=== PATIENT | male | born 1960 | race Hispanic/Latino ===

== ENCOUNTER 2022-03-26 12:34 | Emergency (ER) | payer OTHER, SELFPAY ==
[2022-03-26] VITALS (7 sets, daily range): BP systolic 167–215; BP diastolic 85–102; PULSE 65–75; RESP 14–18; TEMP 36.3–36.8; O2SAT 95–99; BMI 26.6
--- NOTE | 2022-03-26 12:52 | XR_ITS ---
Examination: Chest, AP, portable, single view. Technique: Chest, AP upright, portable, single view Date and time: March 26, 2022 1257 hours INDICATIONS: SOB back pain today FINDINGS: Normal heart size Lungs are clear Moderate osteopenia IMPRESSION: No active disease
--- NOTE | 2022-03-26 12:53 | PD.EDADULT ---
ED General RME/HPI General Chief complaint: Back Pain/Injury Stated complaint: BACK PAIN Time Seen by Provider: 03/26/22 12:48 Arrival date/time: 03/26/22 12:34 RME / HPI RME / HPI narrative: 61-year-old male patient was sent to us from [facility], with significant history of hypertension diabetes mellitus, came in for evaluation regarding right-sided posterior chest pain. Onset of symptoms for the last few hours sudden onset of right-sided posterior chest pain, described as dull ache, severity 5 out of 10 nonradiating. It happened after an argument with somebody else. Patient denies any cough denies any fever denies any direct trauma or fall. No medication was taken prior to arrival. In the triage patient was noted to have a systolic above 210. Patient took his blood pressure medication today. Related Data Home Medications Medication Instructions Recorded Confirmed amlodipine 10 mg tablet (Norvasc) 10 mg PO QDAY #0 tabs 10/22/14 03/26/22 acetaminophen 325 mg tablet 650 mg PO Q6H PRN Pain 03/26/22 03/26/22 (Tylenol) aspirin 325 mg tablet 325 mg PO QDAY 03/26/22 03/26/22 atorvastatin 40 mg tablet 40 mg PO QPM 03/26/22 03/26/22 bisacodyl 10 mg rectal suppository 10 mg OR PRN PRN Constipation 03/26/22 03/26/22 (Dulcolax (bisacodyl)) clopidogrel 75 mg tablet (Plavix) 75 mg PO QDAY 03/26/22 03/26/22 cyclobenzaprine 5 mg tablet 5 mg PO Q8H PRN Spasms 03/26/22 03/26/22 folic acid 1 mg tablet 1 mg PO QDAY 03/26/22 03/26/22 gabapentin 300 mg capsule 300 mg PO TID 03/26/22 03/26/22 insulin detemir U-100 100 unit/mL 34 unit subcut BID 03/26/22 03/26/22 (3 mL) subcutaneous pen (Levemir FlexPen) insulin lispro 100 unit/mL See Rx Instructions .Route .COMPLEX 03/26/22 03/26/22 subcutaneous pen (Humalog KwikPen (U-100) Insulin) magnesium hydroxide 400 mg/5 mL 30 ml PO PRN PRN Constipation 03/26/22 03/26/22 oral suspension (Milk of Magnesia) multivitamin with minerals 1 tab PO QDAY 03/26/22 03/26/22 sertraline 50 mg tablet 50 mg PO QDAY 03/26/22 03/26/22 sitagliptin phosphate 100 mg 100 mg PO QDAY 03/26/22 03/26/22 tablet (Januvia) sodium phosphates 19 gram-7 118 ml OR PRN PRN Constipation 03/26/22 03/26/22 gram/118 mL enema (Fleet Enema) Allergies Allergy/AdvReac Type Severity Reaction Status Date / Time No Known Allergies Allergy Verified 03/26/22 12:45 Review of Systems Review of Systems Narrative Review of Systems: CONSTITUTIONAL: No chills, no fever, no weakness, no diaphoresis, no malaise. HEAD/FACE: No signs of trauma. EENT: No eye pain, no blurred vision, no tearing, no double vision, no ear pain, no ear discharged, no nose pain, no nasal congestion, no throat pain, no throat swelling, no mouth pain. RESPIRATORY: No cough, no orthopnea, no SOB, no stridor, no wheezing. CARDIOVASCULAR: Right posterior chest pain, no edema, no palpitations, no syncope. GASTROINTESTINAL/ABDOMINAL: No abdominal pain, no constipation, no diarrhea, no nausea, no vomiting. GENITOURINARY: No abnormal discharge, no dysuria, no frequent urination, no hematuria. MUSCULOSKELETAL: No back pain, no gout, no joint pain, no joint swelling, no lumps, no rash. INTEGUMENTARY: No change in color, no change in hair/nails, no dryness, no lesions, no lumps, no rash. NEUROLOGICAL/PSYCH: No anxiety, not depressed, no emotional problem, no headache, no numbness, no paresthesia, no pre-existing deficit, no history of seizures, no tingling sensation, no tremors, no weakness. HEMATOLOGIC/LYMPHATIC: Not anemic, no history of blood clots, no apparent bleeding, no bruising, glands not swollen. All Systems Negative, Except as Noted. ED Exam Narrative Physical exam: VITAL SIGNS: Reviewed. GENERAL APPEARANCE: Alert and interactive, follows commands, no acute distress, well developed, nourished, appears well. HEAD AND FACE: Non-traumatic. ENT: PERRL, pink conjunctivitis, eyelid no trauma, anterior chamber clear. Pinnas intact and no signs of trauma or erythema. Tonsils, no exudates, no abscesses noted. Mucous membrane moist. NECK: Supple, nontender, no thyromegaly, no masses, no nuchal rigidity. CHEST: Right posterior chest wall tenderness, no crepitus, no paradoxical movement, no retractions. LUNGS: Clear, well ventilated, symmetric, no rales, no wheezing, no ronchi, no stridor, good breath sounds bilaterally. HEART: Regular rate, regular rhythm, no murmur, no gallops. VASCULAR: No peripheral edema. ABDOMEN: Soft, positive bowel sounds, nondistended, no guarding, nontender, no rebound, no masses, no hepatomegaly, no splenomegaly, no hernias. RECTAL: Deferred. GENITAL: Deferred. NEUROLOGICAL: Gross motor function intact sensory function intact, Appropriate for age. MUSCULOSKELETAL: Neck nontender, full range of motion. EXTREMITIES: Nontender, full range of motion. SKIN: Color pink, dry, good skin turgor, no rash, no lacerations, no abrasions, no contusions. LYMPHATICS: Deferred. Course Quality Measures none Orders Category Date Time Status XR chest 1V Stat Exams 03/26/22 12:52 Completed B-Type Natriuretic Peptide Stat Lab 03/26/22 13:00 Completed CBC Stat Lab 03/26/22 13:00 Completed Comprehensive Metabolic Panel Stat Lab 03/26/22 13:00 Completed Partial Thromboplastin Time Stat Lab 03/26/22 13:00 Completed Prothrombin Time with INR Stat Lab 03/26/22 13:00 Completed Troponin I Stat Lab 03/26/22 13:00 Completed Troponin I Stat Lab 03/26/22 15:17 Completed Aspirin Med 03/26/22 12:52 Discontinued 325 mg PO X1 ONE hydrALAZINE HCL [Apresoline] Med 03/26/22 12:52 Discontinued 25 mg PO X1 ONE Vital Signs Vital signs: Vital Signs Temperature 97.6 F 03/26/22 12:49 Pulse Rate 71 03/26/22 12:49 Respiratory Rate 16 03/26/22 12:49 Blood Pressure 215/102 H 03/26/22 12:49 Pulse Oximetry (%) 97 03/26/22 12:49 Oxygen Delivery Method Room Air 03/26/22 12:49 Medical Decision Making MDM Narrative MDM Narrative: Patient came in for evaluation regarding posterior chest pain. I have reviewed patient's history and physical examination from previous hospitalization. Current medical complaints extracted from the patient and EMS Although pt?s initial presentation was concerning, Pt now reports feeling better after NSAIDs and has an unremarkable workup here in the ED with EKG, Tropnin and Chest Xray ruling out the majority of my more concerning differential diagnoses including AMI, AAA, Pneumothorax and Pneumonia. CBC,BMP, Troponin are all unremarkable EKG : NSR, normal Ventricular rate, normal OR interval and NO ST segment depression or elevation noted. Xray of the Chest : indication: cough,chest pain , evaluate for pneumonia . Per my interpretation pending official radiology report: No Hemothorax or Pneumothorax, No Cardiomegaly, No inflitrates, no masses noted,Normal films I discussed the the following plan with the patient of NSAIDs PRN, close follow up with PMD 1-2 days, but to return in the event of worsening or persistent concerning symptoms for more comprehensive work up, diagnostics and further treatment.. . Lab Data Result diagrams: 03/26/22 13:00 03/26/22 13:00 Labs: Lab Results 03/26/22 03/26/22 03/26/22 Range/Units 13:00 13:00 13:00 WBC 8.3 (3.8-10.6) Thou/mm3 RBC 4.84 (4.50-5.90) Miln/mm3 Hgb 13.9 (13.5-16.0) g/dL Hct 39.6 L (41.0-53.0) % MCV 82 (80-100) fL MCH 28.7 (25.0-35.0) pg MCHC 35.1 (31.0-37.0) g/dl RDW Std Deviation 40.7 (35.1-43.9) fL Plt Count 197 (140-440) Thou/mm3 Neut % (Auto) 68 (37-80) % Lymph % (Auto) 21 (10-50) % Cascade % (Auto) 8 (0-12) % Eos % (Auto) 2 (0-10) % Baso % (Auto) 1 (0-2.5) % Neut # (Auto) 5.6 (1.8-7.7) Thou/mm3 Lymph # (Auto) 1.7 (1.0-4.8) Thou/mm3 Cascade # (Auto) 0.6 (0.0-0.8) Thou/mm3 Eos # (Auto) 0.2 (0.0-0.5) Thou/mm3 Baso # (Auto) 0.1 (0.0-0.2) Thou/mm3 Immature Gran # (Auto) 0.03 H (0.00-0.00) Thou/mm3 Absolute Nucleated RBC 0.00 (0.00-0.00) Thou/mm3 Immature Gran % 0 (0-0) % Nucleated RBC % 0 (0) /100 WBC PT 10.7 (9.0-12.2) Seconds INR 1.0 (0.9-1.3) APTT 27.6 (22.0-36.0) Seconds Sodium 138 (136-145) mMol/L Potassium 4.1 (3.4-5.1) mMol/L Chloride 101 (98-107) mMol/L Carbon Dioxide 30.0 (20.0-31.0) mMol/L Anion Gap 7 (7-16) BUN 15 (9-23) mg/dL Creatinine 1.7 H (0.6-1.3) mg/dL Estim Creat Clear Calc 46.2 L (>60) mL/min eGFR 46 L (60 - ) See Note BUN/Creatinine Ratio 9 L (12-20) Ratio Glucose 304 H (74-106) mg/dL Calculated Osmolality 287 (275-295) Calcium 9.2 (8.3-10.6) mg/dL Corrected Calcium 9.2 (8.5-10.1) mg/dL Total Bilirubin 0.4 (0.3-1.2) mg/dL AST 24 (0-34) U/L ALT 30 (10-49) U/L Alkaline Phosphatase 226 H (46-116) U/L Troponin I 0.062 H* (0.0-0.045) ng/mL B-Natriuretic Peptide (0-100) pg/mL Total Protein 7.4 (5.7-8.2) gm/dL Albumin 4.0 (3.4-4.8) gm/dL Globulin 3.4 (2.3-3.5) gm/dL Albumin/Globulin Ratio 1.2 (1.2-2.2) 03/26/22 03/26/22 Range/Units 13:00 15:17 WBC (3.8-10.6) Thou/mm3 RBC (4.50-5.90) Miln/mm3 Hgb (13.5-16.0) g/dL Hct (41.0-53.0) % MCV (80-100) fL MCH (25.0-35.0) pg MCHC (31.0-37.0) g/dl RDW Std Deviation (35.1-43.9) fL Plt Count (140-440) Thou/mm3 Neut % (Auto) (37-80) % Lymph % (Auto) (10-50) % Cascade % (Auto) (0-12) % Eos % (Auto) (0-10) % Baso % (Auto) (0-2.5) % Neut # (Auto) (1.8-7.7) Thou/mm3 Lymph # (Auto) (1.0-4.8) Thou/mm3 Cascade # (Auto) (0.0-0.8) Thou/mm3 Eos # (Auto) (0.0-0.5) Thou/mm3 Baso # (Auto) (0.0-0.2) Thou/mm3 Immature Gran # (Auto) (0.00-0.00) Thou/mm3 Absolute Nucleated RBC (0.00-0.00) Thou/mm3 Immature Gran % (0-0) % Nucleated RBC % (0) /100 WBC PT (9.0-12.2) Seconds INR (0.9-1.3) APTT (22.0-36.0) Seconds Sodium (136-145) mMol/L Potassium (3.4-5.1) mMol/L Chloride (98-107) mMol/L Carbon Dioxide (20.0-31.0) mMol/L Anion Gap (7-16) BUN (9-23) mg/dL Creatinine (0.6-1.3) mg/dL Estim Creat Clear Calc (>60) mL/min eGFR (60 - ) See Note BUN/Creatinine Ratio (12-20) Ratio Glucose (74-106) mg/dL Calculated Osmolality (275-295) Calcium (8.3-10.6) mg/dL Corrected Calcium (8.5-10.1) mg/dL Total Bilirubin (0.3-1.2) mg/dL AST (0-34) U/L ALT (10-49) U/L Alkaline Phosphatase (46-116) U/L Troponin I 0.058 H* (0.0-0.045) ng/mL B-Natriuretic Peptide 94 (0-100) pg/mL Total Protein (5.7-8.2) gm/dL Albumin (3.4-4.8) gm/dL Globulin (2.3-3.5) gm/dL Albumin/Globulin Ratio (1.2-2.2) Discharge Plan Plan Patient Disposition: HOME (Self Care) Disposition Comment: Stable Prescriptions/Referrals Prescriptions/Med Rec: No Action amlodipine [Norvasc] 10 MG tablet 10 mg PO QDAY Qty: 0 atorvastatin 40 mg Tablet 40 mg PO QPM acetaminophen [Tylenol] 325 mg Tablet 650 mg PO Q6H PRN (Reason: Pain) aspirin 325 mg Tablet 325 mg PO QDAY clopidogrel [Plavix] 75 mg Tablet 75 mg PO QDAY magnesium hydroxide [Milk of Magnesia] 400 mg/5 mL Suspension 30 ml PO PRN PRN (Reason: Constipation) bisacodyl [Dulcolax (bisacodyl)] 10 mg Suppository 10 mg OR PRN PRN (Reason: Constipation) Fleet Enema 19-7 gram/118 mL Enema 118 ml OR PRN PRN (Reason: Constipation) gabapentin 300 mg Capsule 300 mg PO TID folic acid 1 mg Tablet 1 mg PO QDAY multivitamin with minerals Tablet 1 tab PO QDAY sertraline 50 mg Tablet 50 mg PO QDAY insulin lispro [Humalog KwikPen Insulin] 100 unit/mL Insulin Pen See Rx Instructions .ROUTE .COMPLEX Rx Instructions: per sliding scale. cyclobenzaprine 5 mg Tablet 5 mg PO Q8H PRN (Reason: Spasms) Levemir FlexPen 100 unit/mL (3 mL) Insulin Pen 34 unit SUBCUT BID Januvia 100 mg Tablet 100 mg PO QDAY Referrals: Theo Martínez MD [Primary Care Provider] - 03/27/22 Problem List Clinical Impression: Chest wall pain Patient/Caregiver Discharge Instructions Discharge Activity: activity as tolerated Education Materials: ED Chest Pain, Noncardiac Additional Instructions: Follow-up with your doctor in 1 to 2 days Return to ED for worsening symptoms You may take Tylenol Motrin as needed for pain Stand Alone Forms: Patient Portal Info Letter ONI/BRITTANY Supervising Physician ONI/BRITTANY Supervising Physician: Morris CHAVES Attestation MD Attestation The patient was seen by the midlevel practitioner. I, the co-signing physician, was present during the entire ER visit and available for consultation as needed. I agree with the plan and documentation, additional information provided by me where needed.
[2022-03-26] MEDS: Aspirin 325 MG TABLET PO (12:57)
[2022-03-26] MEDS: hydrALAZINE HCL 25 MG TABLET PO (12:57)
[2022-03-26 13:21] LABS: Basophils # (Auto) 0.1 Thou/mm3 (0.0-0.2); Basophils % (Auto) 1 % (0-2.5); Eosinophils # (Auto) 0.2 Thou/mm3 (0.0-0.5); Eosinophils % (Auto) 2 % (0-10); Hematocrit 39.6 % (41.0-53.0); Hemoglobin 13.9 g/dL (13.5-16.0); Immature Granulocytes % (Auto) 0 % (0-0); Immature Granulocytes Auto 0.03 Thou/mm3 (0.00-0.00); Lymphocytes # (Auto) 1.7 Thou/mm3 (1.0-4.8); Lymphocytes % (Auto) 21 % (10-50); Mean Corpuscular HGB Conc 35.1 g/dl (31.0-37.0); Mean Corpuscular Hemoglobin 28.7 pg (25.0-35.0); Mean Corpuscular Volume 82 fL (80-100); Monocytes # (Auto) 0.6 Thou/mm3 (0.0-0.8); Monocytes % (Auto) 8 % (0-12); Neutrophils # (Auto) 5.6 Thou/mm3 (1.8-7.7); Neutrophils % (Auto) 68 % (37-80); Nucleated Red Blood Cell % 0 /100 WBC (0); Platelet Count 197 Thou/mm3 (140-440); RDW Standard Deviation 40.7 fL (35.1-43.9); Red Blood Count 4.84 Miln/mm3 (4.50-5.90); White Blood Count 8.3 Thou/mm3 (3.8-10.6)
[2022-03-26 13:39] LABS: Partial Thromboplastin Time 27.6 Seconds (22.0-36.0); Prothrombin Time 10.7 Seconds (9.0-12.2)
[2022-03-26 13:52] LABS: B-Type Natriuretic Peptide 94 pg/mL (0-100)
[2022-03-26 14:05] LABS: Alanine Aminotransferase 30 U/L (10-49); Albumin/Globulin Ratio 1.2 (1.2-2.2); Alkaline Phosphatase 226 U/L (46-116); Anion Gap 7 (7-16); Aspartate Amino Transferase 24 U/L (0-34); BUN/Creatinine Ratio 9 Ratio (12-20); Bilirubin,Total 0.4 mg/dL (0.3-1.2); Blood Urea Nitrogen 15 mg/dL (9-23); Calcium 9.2 mg/dL (8.3-10.6); Calcium (Corrected) 9.2 mg/dL (8.5-10.1); Chloride 101 mMol/L (98-107); Creatinine (Component) 1.7 mg/dL (0.6-1.3); Estimated Creatinine Clearance 46.2 mL/min (>60); Globulin 3.4 gm/dL (2.3-3.5); Glucose 304 mg/dL (74-106); Osmolality,Calculated 287 (275-295); Potassium 4.1 mMol/L (3.4-5.1); Sodium 138 mMol/L (136-145); Total Protein 7.4 gm/dL (5.7-8.2); eGFR 46 See Note
[2022-03-26 14:07] LABS: Troponin I 0.062 ng/mL (0.0-0.045)
[2022-03-26 16:17] LABS: Troponin I 0.058 ng/mL (0.0-0.045)
--- NOTE | 2022-03-26 17:42 | PC.CC ---
Transport ETA of 1999 to [facility].
--- NOTE | 2022-03-26 18:20 | PC.NURSE ---
report given to michelle at [facility]
== END 2022-03-26 20:15 | disposition home or self-care (01) ==
PROVIDERS: Nurse Practitioner Family; Emergency Provider Emergency Medicine; PCP Hospitalist
DX: R07.89 Other chest pain (principal); M54.9 Dorsalgia, unspecified; I10 Essential (primary) hypertension; E11.9 Type 2 diabetes mellitus without complications; Z79.84 Long term (current) use of oral hypoglycemic drugs
CPT/HCPCS: 36415; 71045; 80053; 81001; 83880; 84484; 85025; 85610; 85730; 99283; A9270